=== PATIENT | male | born 2000 | race Caucasian/White ===

== ENCOUNTER 2025-07-16 18:44 | Emergency (ER) | payer MEDICAID, SELFPAY ==
[2025-07-16 18:45] VITALS: BP 127/81; PULSE 87; RESP 18; TEMP 36.7; O2SAT 99
[2025-07-16 18:51] VITALS: BP 127/81; PULSE 87; RESP 18; TEMP 36.7; O2SAT 99
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
[2025-07-16] MEDS: Fluorescein STRIPS 100/BOX 1 MG OP (19:13)
[2025-07-16] MEDS: Tetracaine 0.5% 4 ML BTL OP (19:13)
[2025-07-16] MEDS: Erythromycin Ophth Oint 3.5 GM TUBE OD (19:14)
== END 2025-07-16 19:20 | disposition home or self-care (01) ==
PROVIDERS: Emergency Provider Emergency Medicine
DX: S05.01XA Injury of conjunctiva and corneal abrasion without foreign body, right eye, initial encounter (principal); X58.XXXA Exposure to other specified factors, initial encounter
CPT/HCPCS: 99283